=== PATIENT | male | born 1990 | race African-American/Black ===

== ENCOUNTER 2022-03-18 23:05 | Emergency (ER) | payer MEDICAID ==
[~2022-03-18] VITALS: Ht 188 cm; Wt 99.8 kg
[2022-03-18 23:13] VITALS: BP_SYST 158
--- NOTE | 2022-03-18 23:15 | NUR ---
RECEIVED PATIENT ACCOMPANIED BY [facility] [employer]ER TRUNG. PT HERE FOR MEDICAL CLEARANCE. PT NOT ANSWERING ANY QUESTION AT THIS TIME. UNABLE TO OBTAING PMH AND OTHER INFORMATION. PT AWAKE AND ALERT, NOT IN ANY DISTRESS AT THIS TIME. NO SOB NOTED.
--- NOTE | 2022-03-18 23:25 | NUR ---
PT SEEN AND EXAMINE BY DR. CASH AT BEDSIDE AT THIS TIME.
--- NOTE | 2022-03-18 23:30 | NUR ---
PT ANSWERING QUESTION AT THIS TIME WHILE PT AAOX4, NOT IN ANY DISTRESS.
--- NOTE | 2022-03-18 23:47 | NUR ---
XRAY DONE AT BEDSIDE
[2022-03-19 00:15] VITALS: BP_SYST 145
[2022-03-19] MEDS ORDERED: IBUPROFEN 600 MG TABLET PO ONE (00:15)
--- NOTE | 2022-03-19 00:15 | NUR ---
VALERIA GIBSON AT BEDSIDE FOR RE EVAL.
--- NOTE | 2022-03-19 00:33 | NUR ---
DC PT [facility]ANIED [facility]LL[facility]#[id number]. PT AAOX4, NO SOB NOTED AND NOT IN ANY DISTRESS. PT MEDICALLY CLEARED BY DR. MCCARTNEY.
== END 2022-03-19 00:29 ==
LOC: SED 23:05
DX: M25.531 Pain in right wrist (principal); F10.129 Alcohol abuse with intoxication, unspecified; Z79.899 Other long term (current) drug therapy; Y90.6 Blood alcohol level of 120-199 mg/100 ml
CPT/HCPCS: 82962; 99283